=== PATIENT | female | born 1995 | race Caucasian/White ===

== ENCOUNTER 2018-01-10 23:35 | Inpatient (IN) | payer OTHER, SELFPAY ==
[2018-01-10] MEDS: 0.9% Saline Lock 10 ML Syringe IV (23:40)
[2018-01-10 23:53] VITALS: BMI 24.7
[2018-01-11 00:12] LABS: Hematocrit 35.3 % (37-47); Hemoglobin 12.2 g/dl (12.0-15.0); Mean Corp Hgb Conc 34.6 g/gl (32-36); Mean Corpuscular Hgb 30.6 pg (27.0-32.0); Mean Corpuscular Volume 88.5 fL (81-99); Mean Platelet Vol. 9.2 fl (6.2-12.0); Platelet Count 195 K/mm3 (150-450); RBC Distribution Width CV 13.2 % (11.6-14.6); RBC Distribution Width SD 43.1 fl (35.1-43.9); Red Blood Count 3.99 M/mm3 (4.2-5.4); White Blood Count 10.7 K/mm3 (4.4-11.0)
[2018-01-11 00:19] LABS: Scan Indicated on CBC? Y/N NO
[2018-01-11] MEDS: Lactated Ringers 1,000 ML 50 ML IV ×3 (03:44→08:17)
[2018-01-11] MEDS: fentaNYL-bupivacaine (epidural) 100 ML BAG EPIDURAL (04:27)
[2018-01-11] MEDS: Ondansetron 4 MG/2 ML Vial IV (05:45)
--- NOTE | 2018-01-11 07:33 | PCM.HP.OB ---
History Date of Admission: 01/10/18 Final ALEXI: 01/12/18 Final ALEXI Source: US <20 weeks Gestational age: 39 Weeks and 6 Days History of this : 22 y/o at 39w6d who presented to L&D with ctx's and in active labor. Her was uncomplicated except mild anemia. Allergies No Known Allergies Allergy (Verified 01/10/18 23:54) Home Medications: Home Medications Ferrous Sulfate [Slow Fe] 142 mg PO DAILY 01/10/18 Vits [Prenatabs FA] 1 tablet PO DAILY 01/10/18 Smoking Status: Never smoker Alcohol: None Number of Fetus(es): 1 Heart Tracing: Normal baseline with moderate variability TOCO Analysis: Regular contractions. History Past Pregnancies: Past Pregnancies Delivery Date Name GA/Weeks Outcome Route Weight Infant Gender Labor Length Anesthesia Delivery Location Provider FOB Expected Delivery Method: Spontaneous Vaginal Physical Exam General: Alert, Oriented x3 HEENT: Atraumatic Estimated gestational size: Appropriate for gestational size Presentation: Cephalic Cervix Dilation (cm): 8 Station: -1 Effacement (%): 90 Assessment/Plan This is a 22 year-old, G 1, P 0, at 39 weeks gestational age. Admitted to labor and delivery for active labor. Status post artificial rupture of membranes for clear fluid Status post epidural for pain control Continue expectant management anticipate vaginal delivery
[2018-01-11] MEDS: Oxytocin 30 units/NS 500 ml 30 UNITS/500 ML IV.SOLN 334 UNITS IV (11:36)
[2018-01-11] MEDS: Oxytocin 30 units/NS 500 ml 30 UNITS/500 ML IV.SOLN 167 UNITS IV (12:05)
--- NOTE | 2018-01-11 12:18 | PCM.OB.VAG ---
- Problem List (1) Vaginal delivery Status: Acute (2) Perineal laceration Status: Acute Vaginal Delivery Maternal Presentation: Active Labor Amniotic Membrane Rupture Type: Artificial Amniotic Fluid Description: Moderate meconium Final ALEXI: 01/12/18 Gestational age: 39 Weeks and 6 Days Date of Procedure: 01/11/18 Pre-Operative Diagnosis: active labor Post-Operative Diagnosis: delivery Surgery/ Procedure Performed: Spontaneous Vaginal Delivery Type of Anesthesia: Epidural Description of Procedure: Patient complete and pushing. Head delivered atraumatically in GIGI position with tight nuchal cord ?1 noted and unable to be reduced. Anterior shoulder shoulder followed by posterior shoulder delivered without any force or delay. Viable female delivered and placed on maternal abdomen. Cord clamped and cut after 60 sec delay. Cord gases and cord blood obtained. Placenta delivered intact. Uterus explored ?1. Fundus firm and bleeding hemostatic. Second-degree perineal laceration noted and repaired in usual sterile fashion using 3-0 Vicryl. Right sulcal laceration noted and repaired in usual sterile fashion using 3-0 Vicryl. Right labial laceration noted and repaired using 3-0 chromic in usual sterile fashion. EBL 300 cc. Presentation: Vertex Placental Delivery Description: Expressed Placenta Disposition: [facility] Cord Vessel Description: 3 Vessels Nuchal Cord Compression: Without compression Cord Entanglement: Around neck x 1, tight Drain: Z[place] to straight drain A gender: Female Laceration: Right Mediolateral, 2nd degree Medications given after delivery: IV Pitocin Complications: None
[2018-01-11 14:40] VITALS: BP 107/65; PULSE 71; RESP 18; TEMP 37.1
[2018-01-11 20:10] VITALS: BP 113/56; PULSE 103; RESP 18; TEMP 36.1; O2SAT 100
[2018-01-12 01:00] VITALS: BP 107/65; PULSE 71; RESP 18; TEMP 36.6; O2SAT 100
[2018-01-12 04:00] VITALS: BP 112/56; PULSE 66; RESP 18; TEMP 36.1
[2018-01-12] MEDS: Ibuprofen 600 MG Tablet PO ×3 (04:03→19:29)
--- NOTE | 2018-01-12 07:50 | PCM.PN.OB ---
Patient Problems: Active and Suspected Problems Vaginal delivery (Acute) Perineal laceration (Acute) Subjective: Patient doing well day #1. She reports her pain is well controlled with Motrin. Has been ambulating and spontaneously voiding without difficulty. Tolerating a regular diet without nausea or vomiting. Lochia normal. No fevers, CP, SOB, leg pain. She has no complaints this morning, and feels ready to go home today. well and has met with . - Physical Exam General: Alert, Oriented x3 HEENT: Atraumatic, Normocephalic Lungs: - - No increased resp effort Abdomen: Soft, Non Tender, Non-Distended, - - Fundus firm at U-1 Extremities: No edema, No Calf Tenderness Skin: No rashes Neurological: Neuro grossly intact Psych/Mental Status: Appropriate Vital Signs Temp Pulse Resp BP Pulse Ox 96.9 F L 66 18 112/56 L 100 01/12/18 04:00 01/12/18 04:00 01/12/18 04:00 01/12/18 04:00 01/12/18 01:00 Oxygen Delivery Method Room Air Weight: 143 lb 15.39 oz Body Mass Index (BMI) 24.7 Intake and Output for Last 24 Hours 01/10/18 01/11/18 01/12/18 23:59 23:59 23:59 Intake Total 3270 / 3270 Output Total 3450 / 3450 Balance -180 / -180 Medical Necessity - Tobacco Use Smoking Status: Never smoker Assessment/Plan All Active Problems Vaginal delivery (Acute) Perineal laceration (Acute) 22 y/o who is PPD#1 s/p uncomplicated . - Doing well today - AF, VSS - - Plans to use condoms for contraception - Dispo: D/c home today to follow up for visit in office
[2018-01-12 07:56] VITALS: BP 114/63; PULSE 73; RESP 16; TEMP 36.2; O2SAT 97
--- NOTE | 2018-01-12 08:01 | PCM.DCVAG ---
Discharge Diet: No Restrictions Discharge Activity: Return to Normal Activity, May Shower May resume sexual activity in: 6 weeks Weight Bearing Status: Weight bearing as tolerated Additional Activity Instructions:: Nothing in the vagina for 4-6 weeks. You may return to work/school in 6 weeks. Call your doctor if your incision/area has: Sudden Increased Bleeding, Foul Smelling Discharge Call your doctor if you observe: Fever of 101 or Higher, Inability to urinate, Using more than one pad per hour, Shortness of breath, Chest pain, Calf discomfort, Uncontrolled pain Additional Instructions: If you experience any of the following, contact your healthcare provider. Bleeding that soaks a pad every hour for 2 hours Fever 100.4 or higher Unrelieved incision or abdominal pain Swelling, redness, discharge or bleeding from your incision or episiotomy site Your incision begins to separate Problems urinating (including inability to urinate or burning while urinating). Visual changes Severe headache Flu-like symptoms Pain or redness in one of both of your breasts Pain, warmth, tenderness or swelling in your legs, especially the calf area Frequent nausea and vomiting Symptoms of depression or anxiety If you experience any of the following, call 911 or go to the nearest Emergency Room. Chest pain Problems breathing Seizure activity Partial or complete paralysis of a body part, slurred speech, weakness or drooping of the face, or a sudden inability to walk or hold your balance Allergies/Adverse Reactions: Allergies No Known Allergies Allergy (Verified 01/10/18 23:54) Medications to take at Discharge Ferrous Sulfate [Slow Fe] 142 mg PO DAILY 01/10/18 Vits [Prenatabs FA] 1 tablet PO DAILY 01/10/18 Please Follow Up With: Petty Clemens DO When: Call to make an appointment with your doctor in 2 weeks and 6 weeks. Primary Care Physician: Care Physician,No Primary [Primary Care Provider] - Test Results: Test results from this visit will be discussed in further detail at your follow-up appointment, if applicable.
[2018-01-12] MEDS: Senna/Docusate Sodium 1 Tablet PO (11:31)
[2018-01-12] MEDS: Prenatal Vits Tablet 1 TABLET PO (11:32)
[2018-01-12 14:00] VITALS: BP 106/54; PULSE 78; RESP 16; TEMP 36.6; O2SAT 98
--- NOTE | 2018-01-12 14:28 | NURSING ---
no change in assessment
[2018-01-12 19:29] VITALS: BP 101/60; PULSE 78; RESP 16; TEMP 36.6; O2SAT 99
[2018-01-13 02:09] VITALS: BP 105/60; PULSE 66; RESP 15; TEMP 36.3; O2SAT 99
--- NOTE | 2018-01-13 02:23 | NURSING ---
Reviewed and agreed with charting by Keerthi CHAKRABORTY. Taking over full pt care at this time.
--- NOTE | 2018-01-13 07:52 | PCM.PN.OB ---
Patient Problems: Active and Suspected Problems Vaginal delivery (Acute) Perineal laceration (Acute) Subjective: Patient doing well. No complaints. Pain controlled. [place]ia normal. King reg diet. Voiding without difficulty. Ambulating without difficulty. No fevers, chills, CP, SOB, leg pain. well. - Physical Exam General: Alert, Oriented x3 HEENT: Atraumatic Lungs: Normal air movement Abdomen: Soft, Non Tender, Non-Distended, - - fundus firm at U-1 Extremities: No edema, No Calf Tenderness Neurological: Neuro grossly intact Psych/Mental Status: Normal Affect, Appropriate Vital Signs Temp Pulse Resp BP Pulse Ox 97.4 F L 66 15 105/60 99 01/13/18 02:09 01/13/18 02:09 01/13/18 02:09 01/13/18 02:09 01/13/18 02:09 Oxygen Delivery Method Room Air Weight: 143 lb 15.39 oz Body Mass Index (BMI) 24.7 Intake and Output for Last 24 Hours 01/11/18 01/12/18 01/13/18 23:59 23:59 23:59 Intake Total 3270 / 3270 Output Total 3450 / 3450 Balance -180 / -180 Medical Necessity - Tobacco Use Smoking Status: Never smoker Assessment/Plan All Active Problems Vaginal delivery (Acute) Perineal laceration (Acute) PPD#2 s/p - Doing well - AF, VSS - Plans to use condoms for control - Dispo: D/c home today. Reviewed return precautions. Reviewed care and comfort measures for perineal laceration. Discussed with her to call the office to make 2 week and 6 week apt's
[2018-01-13 09:40] VITALS: BP 113/68; PULSE 70; RESP 16; TEMP 36.5; O2SAT 99
== END 2018-01-13 12:40 | disposition home or self-care (01) | DRG 775 ==
PROVIDERS: Obstetrics & Gynecology; Admitting Provider Obstetrics & Gynecology; Visit Provider Obstetrics & Gynecology
DX: O99.02 Anemia complicating childbirth (principal); Z37.0 Single live birth; D64.9 Anemia, unspecified; O77.0 Labor and delivery complicated by meconium in amniotic fluid; Z3A.39 39 weeks gestation of pregnancy; Z79.899 Other long term (current) drug therapy; O70.1 Second degree perineal laceration during delivery
CPT/HCPCS: 59025; 59050; 85027; 86850; 86900; 99218; J7120; A4216; G0378; J2405

== ENCOUNTER 2019-08-04 18:20 | Inpatient (IN) | payer OTHER, SELFPAY ==
[2019-08-04] VITALS (13 sets, daily range): BP systolic 100–118; BP diastolic 48–71; PULSE 77–102; RESP 18; TEMP 36.6–36.9; O2SAT 83–100; BMI 24.0
[2019-08-04] MEDS: Lactated Ringers 1,000 ML 150 ML IV (18:55)
--- NOTE | 2019-08-04 19:27 | HP.PCM_ITS ---
- Problem List (1) Spontaneous onset of labor Status: Acute (2) 38 weeks gestation of Status: Acute (3) Group beta Strep positive Status: Acute History Date of Admission: 01/10/18 Final ALEXI: 08/12/19 Final ALEXI Source: US <20 weeks Gestational age: 38 Weeks and 6 Days History of this : This is a 23 year-old, G [2], P [1], at 38.6 weeks gestational age that is in active labor. Allergies No Known Allergies Allergy (Verified 08/04/19 18:51) Home Medications: Home Medications Vits [Prenatabs FA] 1 tablet PO DAILY 01/10/18 Ferrous Sulfate 325 mg PO DAILY 08/04/19 Smoking Status: Never smoker Alcohol: None Number of Fetus(es): 1 NST - FHR Rate Baby A Baseline: 145 Variability:: Moderate Accelerations:: 15 x 15 Decelerations:: None FHR Category:: Category I Uterine Activity:: 1-3 minutes, palpate moderate and relaxed in between History Past Pregnancies: Past Pregnancies Delivery Date Name GA/ Weeks Outcome Route Wt Sex Labor Length Anesthesia Delivery Location Provider FOB Labs: labs: A- negative Rubella - immune RPR- NR HB- negative HIV- NR GC/C - negative Expected Delivery Method: Spontaneous Vaginal Describe any other labor & delivery plans:: Patient refusing antibiotic treatment for GBS positive result. Patient signed refusal. Traveling Accountant notified. Verbally recommended that patient receive antibiotic treatment. Review of Systems Constitutional: Denies: Chills, Fever, Weight Change Eyes: Denies: Blurred vision Cardiovascular: Denies: Chest Pain Respiratory: Denies: Cough Physical Exam Vitals: Vital Signs Temp Pulse BP Pulse Ox 97.9 F 85 115/71 100 08/04/19 18:48 08/04/19 18:48 08/04/19 18:48 08/04/19 18:48 General: Alert Neurological: Cranial nerves II-XII grossly intact Estimated gestational size: Appropriate for gestational size Presentation: Cephalic Cervix Dilation (cm): 6 Station: -2 Effacement (%): 80 Assessment/Plan All Active Problems Vaginal delivery (Acute) Perineal laceration (Acute) Spontaneous onset of labor (Acute) 38 weeks gestation of (Acute) Group beta Strep positive (Acute) This is a 23 year-old, G 2, P1, at 38.4 weeks gestational age in active labor. -Admit to L&D -EFM and TOCO -Anticipate - Nitrous oxide and epidural offered for pain control.
[2019-08-04 19:30] LABS: Absolute Lymphocyte Count 2.15 X10^3/uL (0.83-4.51); Absolute Neutrophil Count 14.8 X10^3/uL (2.0-7.7); Basophil# 0.03 X10^3/uL; Basophil% 0.2 % (0-1); Eosinophil# 0.03 X10^3/uL; Eosinophils% 0.2 % (0-5); Hematocrit 37.9 % (37-47); Hemoglobin 12.5 g/dL (12.0-15.0); Lymphocyte # 2.15 X10^3/ul (4.0); Lymphocyte % 11.9 % (19-41); Mean Corpuscular Hgb 29.1 pg (27.0-32.0); Mean Corpuscular Volume 88.1 fL (81-99); Mean Platelet Vol. 9.2 fl (6.2-12.0); Monocyte# 0.89 X10^3/uL; Monocyte% 4.9 % (0-10); NRBC Flagged by Analyzer 0 % (0-5); Platelet Count 195 K/mm3 (150-450); RBC Distribution Width CV 14.3 % (11.6-14.6); RBC Distribution Width SD 46.5 fl (35.1-43.9)
[2019-08-04] MEDS: Oxytocin 30 units/NS 500 ml 30 UNITS/500 ML IV.SOLN 334 UNITS IV (20:50)
--- NOTE | 2019-08-04 21:53 | PCM.OPRPT ---
Problem List (1) Spontaneous onset of labor Status: Resolved (2) 38 weeks gestation of Status: Resolved (3) Group beta Strep positive Status: Acute (4) Vaginal delivery Status: Acute (5) Perineal laceration Status: Acute Report of Operation Date of Procedure: 08/04/19 Pre-Operative Diagnosis: 38.4 weeks gestation, spontaneous labor Post-Operative Diagnosis: same, live female infant Vaginal Delivery Maternal Presentation: Active Labor Amniotic Membrane Rupture Type: Artificial Rupture of Membrane time: 1945 Amniotic Fluid Description: Clear Final ALEXI: 08/12/19 Gestational age: 38 Weeks and 6 Days Date of Procedure: 08/04/19 Pre-Operative Diagnosis: 39.8 weeks gestation, spontaneous labor Post-Operative Diagnosis: same, live female infant Surgery/ Procedure Performed: Spontaneous Vaginal Delivery Type of Anesthesia: Local with 1% lidocaine Description of Procedure: Patient quickly became completely dilated and had urge to push. Good maternal pushing efforts and delivery of head was over an intact perineum. Gentle downward traction with delivery of the anterior shoulder followed by the rest of infant's body. Infant was vigorous and placed on maternal abdomen. Delayed clamping and cutting of cord. Placenta delivered soon after without difficulty. Placenta intact. Second degree vaginal laceration repaired with 3-0 Rapide. Presentation: Vertex, GIGI Placental Delivery Description: Spontaneous Placenta Disposition: [facility] Cord Vessel Description: 3 Vessels Cord Entanglement: None Estimated Blood Loss: 250 Infant A gender: Female (1 minute): 8 (5 minute): 9 Episiotomy Description: None Laceration: 2nd degree Medications given after delivery: IV Pitocin
[2019-08-04] MEDS: Ibuprofen 600 MG Tablet PO (23:05)
[2019-08-05 03:49] VITALS: BP 110/43; PULSE 65; RESP 18; TEMP 36.2
[2019-08-05 08:30] VITALS: BP 100/55; PULSE 65; RESP 16; TEMP 36.4
[2019-08-05 12:30] VITALS: BP 104/49; PULSE 83; RESP 16; TEMP 36.8
--- NOTE | 2019-08-05 15:16 | PN.OBGYN_ITS ---
Patient Problems: Active and Suspected Problems Group beta Strep positive (Acute) Subjective: Patient seen at bedside. Reports feeling good. Up and ambulating. No pain to report. Lochia mild. Voiding without difficulty. Keeping ice packs to perineum going well. - Physical Exam Vitals/I&O's: Vital Signs Temp Pulse Resp BP Pulse Ox 98.2 F 83 16 104/49 L 100 08/05/19 12:30 08/05/19 12:30 08/05/19 12:30 08/05/19 12:30 08/04/19 18:48 Oxygen Delivery Method Room Air Weight: 140 lb 6.951 oz Body Mass Index (BMI) 24.0 Intake and Output for Last 24 Hours 08/03/19 08/04/19 08/05/19 23:59 23:59 23:59 Intake Total 1027.5 / 1027.5 Output Total 100 / 100 400 / 400 Balance 927.5 / 927.5 -400 / -400 General: Alert, Oriented x3 Lungs: Normal air movement Cardiovascular: Regular rate Abdomen: Soft, Non Tender, Non-Distended Neurological: Cranial nerves II-XII grossly intact Psych/Mental Status: Normal Affect Laboratory Results 08/04/19 18:55: WBC 18.0 H, RBC 4.30, Hgb 12.5, Hct 37.9, MCV 88.1, MCH 29.1, MCHC 33.0, RDW Std Deviation 46.5 H, RDW Coeff of Yan 14.3, Plt Count 195, MPV 9.2, Immature Gran % (Auto) 0.800, Neut % (Auto) 82.0 H, Lymph % (Auto) 11.9 L, [place] % (Auto) 4.9, Eos % (Auto) 0.2, Baso % (Auto) 0.2, Absolute Neuts (auto) 14.8 H, Absolute Lymphs (auto) 2.15, Nucleated RBC % 0 08/04/19 18:55: Blood Type A NEGATIVE, Antibody Screen NEGATIVE Current Medications Acetaminophen (Tylenol) 1,000 mg PO Q8H PRN PRN PRN Reason: Pain Score 1-3/10 Bisacodyl (Dulcolax) 10 mg RECTAL UD PRN PRN Reason: If no BM Dibucaine (Dibucaine) 1 applic TOPICAL TID PRN PRN; Protocol PRN Reason: Discomfort Hydrocortisone (Hytone) 1 applic TOPICAL TID PRN PRN; Protocol PRN Reason: Discomfort Ibuprofen (Motrin) 600 mg PO Q6H PRN PRN PRN Reason: Pain Score 1-3/10 Last Admin: 08/04/19 23:05 Dose: 600 mg Documented by: Methylergonovine Maleate (Methergine) 0.2 mg IM X1 PRN PRN Reason: Excess bleeding/uterine atony Ondansetron HCl (Zofran) 4 mg IV Q4H PRN PRN PRN Reason: Nausea Senna/Docusate Sodium (Senokot-S, Edie-Colace) 1 - 2 tablet PO DAILY PRN PRN PRN Reason: Constipation Simethicone (Mylicon) 80 mg PO PCHS PRN PRN Reason: Indigestion/Stomach pain Sodium Chloride () 5 - 15 ml IV UD PRN PRN Reason: SALINE FLUSH Medical Necessity - Tobacco Use Smoking Status: Never smoker Assessment/Plan All Active Problems Vaginal delivery (Acute) Perineal laceration (Acute) Spontaneous onset of labor (Resolved) 38 weeks gestation of (Resolved) Group beta Strep positive (Acute) PPD #1 , feeling well Routine care Pain management
[2019-08-05 16:29] VITALS: BP 98/52; PULSE 85; RESP 16; TEMP 37
[2019-08-05] MEDS: Ibuprofen 600 MG Tablet PO (17:34)
[2019-08-05 20:15] VITALS: BP 100/57; PULSE 87; RESP 16; TEMP 36.5; O2SAT 97
[2019-08-05] MEDS: Senna/Docusate Sodium 1 Tablet PO (20:33)
[2019-08-06 02:45] VITALS: BP 91/52; PULSE 66; RESP 16; TEMP 36.3; O2SAT 98
[2019-08-06 09:30] VITALS: BP 99/57; PULSE 70; RESP 16; TEMP 36.4; O2SAT 99
--- NOTE | 2019-08-06 09:42 | PCM.PN.OB ---
Patient Problems: Active and Suspected Problems Group beta Strep positive (Acute) Subjective: Patient seen at bedside. Feeling well, denies pain. Lochia mild. independently without difficulty. Voiding without difficulty. - Physical Exam Vitals/I&O's: Vital Signs Temp Pulse Resp BP Pulse Ox 97.5 F L 70 16 99/57 L 99 08/06/19 09:30 08/06/19 09:30 08/06/19 09:30 08/06/19 09:30 08/06/19 09:30 Oxygen Delivery Method Room Air Weight: 140 lb 6.951 oz Body Mass Index (BMI) 24.0 Intake and Output for Last 24 Hours 08/04/19 08/05/19 08/06/19 23:59 23:59 23:59 Intake Total 1027.5 / 1027.5 Output Total 100 / 100 400 / 400 Balance 927.5 / 927.5 -400 / -400 General: Alert, Oriented x3 Lungs: Normal air movement Cardiovascular: Regular rate Abdomen: Soft, Non Tender Neurological: Cranial nerves II-XII grossly intact Psych/Mental Status: Normal Affect, Appropriate Current Medications Acetaminophen (Tylenol) 1,000 mg PO Q8H PRN PRN PRN Reason: Pain Score 1-3/10 Bisacodyl (Dulcolax) 10 mg RECTAL UD PRN PRN Reason: If no BM Dibucaine (Dibucaine) 1 applic TOPICAL TID PRN PRN; Protocol PRN Reason: Discomfort Hydrocortisone (Hytone) 1 applic TOPICAL TID PRN PRN; Protocol PRN Reason: Discomfort Ibuprofen (Motrin) 600 mg PO Q6H PRN PRN PRN Reason: Pain Score 1-3/10 Last Admin: 08/05/19 17:34 Dose: 600 mg Documented by: Methylergonovine Maleate (Methergine) 0.2 mg IM X1 PRN PRN Reason: Excess bleeding/uterine atony Ondansetron HCl (Zofran) 4 mg IV Q4H PRN PRN PRN Reason: Nausea Senna/Docusate Sodium (Senokot-S, Edie-Colace) 1 - 2 tablet PO DAILY PRN PRN PRN Reason: Constipation Last Admin: 08/05/19 20:33 Dose: 2 tablet Documented by: Simethicone (Mylicon) 80 mg PO PCHS PRN PRN Reason: Indigestion/Stomach pain Sodium Chloride () 5 - 15 ml IV UD PRN PRN Reason: SALINE FLUSH Medical Necessity - Tobacco Use Smoking Status: Never smoker Assessment/Plan All Active Problems Vaginal delivery (Acute) Perineal laceration (Acute) Spontaneous onset of labor (Resolved) 38 weeks gestation of (Resolved) Group beta Strep positive (Acute) PPD #1 , feeling well Routine care Pain management Discharge home today with instructions for virtual visit in 2 weeks
--- NOTE | 2019-08-06 09:47 | DCINST_ITS ---
Discharge Diet: No Restrictions Discharge Activity: Return to Normal Activity May resume sexual activity in: 4-6 weeks Additional Instructions: If you experience any of the following, contact your healthcare provider. * Bleeding that soaks a pad every hour for 2 hours * Fever 100.4 or higher * Unrelieved incision or abdominal pain * Swelling, redness, discharge or bleeding from your incision or episiotomy site * Your incision begins to separate * Problems urinating (including inability to urinate or burning while urinating). * Visual changes * Severe headache * Flu-like symptoms * Pain or redness in one of both of your breasts * Pain, warmth, tenderness or swelling in your legs, especially the calf area * Frequent nausea and vomiting * Symptoms of depression or anxiety If you experience any of the following, call 911 or go to the nearest Emergency Room. * Chest pain * Problems breathing * Seizure activity * Partial or complete paralysis of a body part, slurred speech, weakness or drooping of the face, or a sudden inability to walk or hold your balance Allergies/Adverse Reactions: Allergies No Known Allergies Allergy (Verified 08/04/19 18:51) Medications to take at Discharge Vits [Prenatabs FA ] 1 tablet PO DAILY 01/10/18 When: 2 weeks virtual visit Primary Care Physician: Care Physician,No Primary [Primary Care Provider] - Test Results: Test results from this visit will be discussed in further detail at your follow- up appointment, if applicable.
--- NOTE | 2019-08-06 09:47 | PCM.DCVAG ---
Discharge Diet: No Restrictions Discharge Activity: Return to Normal Activity May resume sexual activity in: 4-6 weeks Additional Instructions: If you experience any of the following, contact your healthcare provider. Bleeding that soaks a pad every hour for 2 hours Fever 100.4 or higher Unrelieved incision or abdominal pain Swelling, redness, discharge or bleeding from your incision or episiotomy site Your incision begins to separate Problems urinating (including inability to urinate or burning while urinating). Visual changes Severe headache Flu-like symptoms Pain or redness in one of both of your breasts Pain, warmth, tenderness or swelling in your legs, especially the calf area Frequent nausea and vomiting Symptoms of depression or anxiety If you experience any of the following, call 911 or go to the nearest Emergency Room. Chest pain Problems breathing Seizure activity Partial or complete paralysis of a body part, slurred speech, weakness or drooping of the face, or a sudden inability to walk or hold your balance Allergies/Adverse Reactions: Allergies No Known Allergies Allergy (Verified 08/04/19 18:51) Medications to take at Discharge Vits [Prenatabs FA ] 1 tablet PO DAILY 01/10/18 When: 2 weeks virtual visit Primary Care Physician: Care Physician,No Primary [Primary Care Provider] - Test Results: Test results from this visit will be discussed in further detail at your follow-up appointment, if applicable.
== END 2019-08-06 12:30 | disposition home or self-care (01) | DRG 807 ==
PROVIDERS: Advanced Practice Midwife; Admitting Provider Obstetrics & Gynecology; Visit Provider Obstetrics & Gynecology
DX: O99.824 Streptococcus B carrier state complicating childbirth (principal); Z37.0 Single live birth; Z3A.38 38 weeks gestation of pregnancy; O70.1 Second degree perineal laceration during delivery
CPT/HCPCS: 59025; 59050; 85025; 86850; 86900; 86901; 99218; J7120; G0378